=== PATIENT | female | born 1955 | race Caucasian/White ===

== ENCOUNTER → 2024-08-09 | Outpatient (CLI) | payer MEDICARE, BC, SELFPAY ==
[2024-08-09 10:08] LABS: Collection Type, Urine Clean Catch
[2024-08-09 10:30] LABS: Basophils # (Auto) 0.1 Thou/mm3 (0.0-0.2); Basophils % (Auto) 1 % (0-2.5); Eosinophils # (Auto) 0.1 Thou/mm3 (0.0-0.5); Eosinophils % (Auto) 2 % (0-10); Hematocrit 44.7 % (36.0-46.0); Hemoglobin 14.8 g/dL (12.0-16.0); Immature Granulocytes % (Auto) 1 % (0-0); Immature Granulocytes Auto 0.05 Thou/mm3 (0.00-0.00); Immature Reticulocyte Fraction 13.7 % (3.0-15.9); Lymphocytes # (Auto) 1.2 Thou/mm3 (1.0-4.8); Lymphocytes % (Auto) 20 % (10-50); Mean Corpuscular HGB Conc 33.1 g/dl (31.0-37.0); Mean Corpuscular Hemoglobin 31.1 pg (25.0-35.0); Mean Corpuscular Volume 94 fL (80-100); Monocytes # (Auto) 0.5 Thou/mm3 (0.0-0.8); Monocytes % (Auto) 8 % (0-12); Neutrophils # (Auto) 4.2 Thou/mm3 (1.8-7.7); Neutrophils % (Auto) 69 % (37-80); Nucleated Red Blood Cell % 0 /100 WBC (0); Platelet Count 243 Thou/mm3 (140-440); RDW Standard Deviation 47.1 fL (36.4-46.3); Red Blood Count 4.76 Miln/mm3 (4.00-5.20); Reticulocyte Absolute Auto 94.7 Biln/L (25.0-75.0); Reticulocyte Hgb Content 34.3 pg (28.0-35.0); White Blood Count 6.1 Thou/mm3 (3.6-11.0)
[2024-08-09 10:53] LABS: Misc Send Out* See Sep Rpt
[2024-08-09 10:59] LABS: Glucose Estimated Average 111 mg/dL (80-131); Hemoglobin A1C 5.5 % Hgb (4.8-6.0)
[2024-08-09 11:05] LABS: Alanine Aminotransferase 17 U/L (10-49); Albumin, Serum 4.1 gm/dL (3.4-4.8); Albumin/Globulin Ratio 1.6 (1.2-2.2); Alkaline Phosphatase 82 U/L (46-116); Anion Gap 10 (7-16); Aspartate Amino Transferase 15 U/L (0-34); BUN/Creatinine Ratio 19 Ratio (12-20); Bilirubin,Total 0.9 mg/dL (0.3-1.2); Blood Urea Nitrogen 13 mg/dL (9-23); Calcium 8.8 mg/dL (8.3-10.6); Calcium (Corrected) 8.8 mg/dL (8.5-10.1); Carbon Dioxide 26.8 mMol/L (20.0-31.0); Cardiac Risk Estimate 3.2 RATIO (3.7-5.6); Chloride 105 mMol/L (98-107); Cholesterol 202 mg/dL (132-200); Creatinine (Component) 0.7 mg/dL (0.6-1.3); Ferritin 169 ng/mL (7.3-270.7); Free T3 4.2 pg/mL (2.3-4.2); Free T4 (Free Thyroxine) 1.24 ng/dL (0.89-1.76); Globulin 2.5 gm/dL (2.3-3.5); Glucose 103 mg/dL (74-106); HDL Cholesterol 63 mg/dL (40-60); Iron 90 mcg/dL (50-170); LDL Cholesterol,Calculated 123 mg/dL (0-130); Magnesium 1.8 mg/dL (1.6-2.6); Osmolality,Calculated 283 (275-295); Percent Iron Saturation 32 % (20-55); Potassium 4.2 mMol/L (3.4-5.1); Sodium 142 mMol/L (136-145); Total Iron Binding Capacity 274 mcg/dL (250-425); Total Protein 6.6 gm/dL (5.7-8.2); Triglycerides 80 mg/dL (30-150); Unsaturated Iron Binding 184 (225-295); eGFR > 60 See Note
[2024-08-09 11:24] LABS: Folate > 24.00 ng/mL (>5.38); Vitamin B12 501 pg/mL (211-911); Vitamin D 25 Hydroxy Total 44.2 ng/mL (7.3-40.2)
[2024-08-09 14:56] LABS: Bilirubin,Urine Negative (Negative); Blood,Urine Trace (Negative); Clarity,Urine Turbid (Clear/Hazy); Color,Urine Yellow (Lt Yel-Yel); Glucose, Urine Negative (Negative); Ketones,Urine Negative (Negative); Leukocyte Esterase,Urine Positive (Negative); Nitrite,Urine Negative (Negative); PH,Urine 5.5 (5.0-7.0); Protein,Urine Trace (Neg - Trace); Specific Gravity,Urine 1.024 (1.001-1.035); Urobilinogen,Urine Negative mg/dL (0.0-1.0)
[2024-08-09 15:51] LABS: Bacteria,Urine 2+; RBC,Urine 5 /hpf (0-3); Squamous Epithelial Cell,Urine 15 /hpf (0-5); WBC,Urine 15 /hpf (0-5)
[2024-08-22 06:24] LABS: DHEA Sulfate* 75 mcg/dL (12-133); Progesterone,LC/MS* <0.1 ng/mL; Testosterone, Free,Dialysis 3.3 pg/mL (0.1-6.4); Testosterone, Total, Dialysis 19 ng/dL (2-45); Thyroglobulin Antibodies* 1 IU/mL (< OR = 1)
[2024-08-22 06:25] LABS: Estradiol, Ultrasensitive* 24 pg/mL; Vitamin B6, Plasma* 29.4 ng/mL (2.1-21.7)
== END | disposition home or self-care (01) ==
LOC: COPL 09:19
PROVIDERS: PCP Family Medicine; Referring Provider Registered Nurse General Practice; Visit Provider Registered Nurse General Practice
DX: Z00.00 Encounter for general adult medical examination without abnormal findings (principal); E78.2 Mixed hyperlipidemia; R82.5 Elevated urine levels of drugs, medicaments and biological substances; R94.6 Abnormal results of thyroid function studies; D72.819 Decreased white blood cell count, unspecified; E55.9 Vitamin D deficiency, unspecified; R73.09 Other abnormal glucose; D51.9 Vitamin B12 deficiency anemia, unspecified; E67.2 Megavitamin-B6 syndrome; R79.89 Other specified abnormal findings of blood chemistry; E61.1 Iron deficiency
CPT/HCPCS: 36415; 80053; 80061; 81001; 82306; 82607; 82627; 82670; 82728; 82746; 83036; 83540; 83550; 83735; 84144; 84207; 84402; 84403; 84439; 84443; 84481; 84630; 85025; 85046; 86304; 86800

== ENCOUNTER → 2024-08-28 | Outpatient (CLI) | payer MEDICARE, BC, SELFPAY ==
[2024-09-03 06:39] LABS: Zinc, Plasma* 70 mcg/dL (60-130)
== END | disposition home or self-care (01) ==
LOC: COPL 08:48
PROVIDERS: PCP Family Medicine; Referring Provider Family Medicine; Visit Provider Family Medicine
DX: Z00.00 Encounter for general adult medical examination without abnormal findings (principal); D51.9 Vitamin B12 deficiency anemia, unspecified; D72.819 Decreased white blood cell count, unspecified; E55.9 Vitamin D deficiency, unspecified; E61.1 Iron deficiency; E67.2 Megavitamin-B6 syndrome; E78.2 Mixed hyperlipidemia; R73.09 Other abnormal glucose; R79.89 Other specified abnormal findings of blood chemistry; R82.5 Elevated urine levels of drugs, medicaments and biological substances; R94.6 Abnormal results of thyroid function studies
CPT/HCPCS: 36415; 84630